=== PATIENT | male | born 1950 | race Caucasian/White ===

== ENCOUNTER → 2024-07-18 | Outpatient (CLI) | payer MEDICARE, SELFPAY ==
--- NOTE | 2024-07-18 10:38 | MRI_ITS ---
EXAM: MR CHEST WITHOUT INTRAVENOUS CONTRAST CLINICAL INDICATION: mass right chest TECHNIQUE: Multiplanar magnetic resonance images of the chest without intravenous contrast. COMPARISON: No relevant prior studies available. FINDINGS: SOFT TISSUES: In the subcutaneous tissues in the area of interest adjacent to the marker right lateral chest there is a lipoma that measures 2.8 x 1.6 x 1.5 cm adjacent to the lateral aspect of the right pectoralis major muscle. LYMPH NODES: Unremarkable. No enlarged lymph nodes. MRI/Chest W/WO Contrast IMPRESSION: Lipoma measuring 2.8 x 1.6 x 1.5 cm right lateral chest wall adjacent to the lateral aspect of the pectoralis major muscle. Electronically Signed: Bong Perez MD at 2:21 EDT ,
[2024-07-18 11:02] LABS: CREATININE FINGERSTICK < 1.0 mg/dL (0.70-1.30); EGFR FINGERSTICK > 60.0000 mL/min (>60)
== END | disposition home or self-care (01) ==
LOC: MRI 10:17
PROVIDERS: PCP Family Medicine; Referring Provider Surgery Plastic and Reconstructive Surgery; Visit Provider Surgery Plastic and Reconstructive Surgery
DX: R22.2 Localized swelling, mass and lump, trunk (principal)
CPT/HCPCS: 71552; A9575